=== PATIENT | female | born 1955 | race Hispanic/Latino ===

== ENCOUNTER 2016-10-03 20:48 | Observation (INO) | payer BC ==
[~2016-10-03] VITALS: Ht 160 cm; Wt 114.2 kg
[~2016-10-03 20:48] MED LIST: ANTIBIOTIC UNKNOWN; ANTIHYPERTENSIVE PO; ASPIRIN81 M2 PO; ATENOLOL25 MG PO; ATORVASTATIN CA80 MG PO; Cipro PO; GINKGO BILOBA120 M1 PO; KEFLEX500 MG PO; LORAZEPAM0.5 MG PO; MAGNESIUM400 M1 PO; OMEPRAZOLE40 M1 PO; POTASSIUM GLUCO90 MG PO; POTASSIUM GLUCO99 M1 PO; PYRIDIUM200 MG PO; TORADOL10 MG PO; TYLENOL WITH C1 EACH PO; XANAX0.5 MG PO
[2016-10-03 21:10] LABS: HEMATOCRIT 43.4 % (36.0-46.0); MCH 29.7 PG (29.0-34.0); MCHC 32.5 G/DL (30.0-36.0); MCV 91.4 FL (83-99); MEAN PLAT.VOLUME 9.3 uM^3 (9.5-12.4); PLATELET COUNT 255 K/uL (156-360); RBC DIS.WIDTH-CV 12.8 % (11.8-14.6); RBC DIS.WIDTH-SD 42.5 % (39-53); RED BLOOD COUNT 4.75 M/uL (3.80-5.20); WHITE BLOOD COUNT 9.9 K/uL (4.1-10.2)
[2016-10-03 21:32] LABS: CHLORIDE 106 mEq/L (99-109); POTASSIUM 4.2 mEq/L (3.7-5.4); SODIUM 139 mEq/L (136-147)
[2016-10-03 21:44] LABS: GFR ESTIMATE (CALCULATED) > 59 mL/min/; TROP-I INTERPRETATION NEGATIVE; TROPONIN-I < 0.01 ng/mL (0.0-0.30); UREA NITROGEN (BUN) 11 mg/dL (9-23)
[2016-10-03 21:56] LABS: GLUCOSE 101 mg/dL (70-99)
[2016-10-03 22:14] LABS: ADD MIUA? YES; BILIRUBIN NEGATIVE; BLOOD MODERATE; COLOR STRAW ((YELLOW)); GLUCOSE (STRIP) NEGATIVE; KETONES NEGATIVE; LEUKOCYTES NEGATIVE; NITRITE NEGATIVE; PROTEIN (STRIP) NEGATIVE; UROBILINOGEN 0.2 MG/DL (0.2-1.0)
[2016-10-03 22:15] LABS: D-DIMER ELISA 0.82 mg/L FEU (< 0.57)
[2016-10-03 22:21] LABS: BACTERIA NONE SEEN /HPF; EPITHELIAL CELLS RARE /HPF; MUCUS TRACE /LPF; RED BLOOD CELLS 0-5 /HPF (0-5); UCUL ADDED? NO; WHITE BLOOD CELLS 0-5 /HPF (0-5)
[2016-10-03] MEDS ORDERED: LOSARTAN POTASS50 MG PO (23:24)
[2016-10-03] MEDS ORDERED: ESOMEPRAZOLE MA40 MG PO (23:24)
[2016-10-04 01:39] LABS: HDL CHOLESTEROL 71 MG/DL (Desirable>=50); LDL CHOLESTEROL 125 mg/dL (Desirable<100); NON-HDL CHOLESTEROL 153 mg/dL (Desirable<160); TOTAL CHOLESTEROL 224 mg/dL (Desirable<200); TRIGLYCERIDES 142 MG/DL (Normal: <150)
[2016-10-04 01:48] VITALS: BP 107/58
[2016-10-04 02:32] LABS: TROP-I INTERPRETATION NEGATIVE; TROPONIN-I < 0.01 ng/mL (0.0-0.30)
[2016-10-04 07:55] VITALS: BP 118/59; BP 118/70
[2016-10-04 08:49] LABS: TROP-I INTERPRETATION NEGATIVE; TROPONIN-I < 0.01 ng/mL (0.0-0.30)
[2016-10-04 12:26] VITALS: BP 122/68
[2016-10-04 15:11] VITALS: BP 97/56
[2016-10-04] MEDS ORDERED: ASPIRIN81 M2 PO (15:50)
[2016-10-04] MEDS ORDERED: DOCUSATE SODIU100 MG PO (15:51)
[2016-10-04] MEDS ORDERED: PRAVASTATIN SOD40 MG PO (15:54)
== END 2016-10-04 18:07 | disposition home or self-care (01) ==
LOC: EME → EDBD 20:48 → EDOF 23:59 → 5WEST 23:59 → EDOF 23:59 → 5WEST 10-04 01:30
PROVIDERS: Emergency Medicine; Physician Assistant Medical
DX: R07.89 Other chest pain (principal); R42 Dizziness and giddiness; K59.00 Constipation, unspecified; I10 Essential (primary) hypertension; J45.909 Unspecified asthma, uncomplicated; G89.29 Other chronic pain; R10.9 Unspecified abdominal pain; M54.9 Dorsalgia, unspecified; F41.1 Generalized anxiety disorder; F32.9 Major depressive disorder, single episode, unspecified; E66.9 Obesity, unspecified; Z68.41 Body mass index [BMI] 40.0-44.9, adult
CPT/HCPCS: 71020; 74000; 80048; 80061; 81003; 84484; 85027; 85379; 93005; 99281; 99285; G0378; J1650

== ENCOUNTER 2016-11-25 04:18 | Observation (INO) | payer BC ==
[~2016-11-25] VITALS: Ht 160 cm; Wt 114.4 kg
[~2016-11-25 04:18] MED LIST changes: +DOCUSATE SODIU100 MG PO; +ESOMEPRAZOLE MA40 MG PO; +LOSARTAN POTASS50 MG PO; +PRAVASTATIN SOD40 MG PO
[2016-11-25 05:12] LABS: CHLORIDE 106 mEq/L (99-109)
[2016-11-25 05:13] LABS: POTASSIUM 4.2 mEq/L (3.7-5.4); SODIUM 142 mEq/L (136-147)
[2016-11-25 05:14] LABS: GLUCOSE 112 mg/dL (70-99)
[2016-11-25 05:16] LABS: ANION GAP 10 MEQ/L (2-14)
[2016-11-25 05:17] LABS: HEMATOCRIT 43.8 % (36.0-46.0); MCH 29.5 PG (29.0-34.0); MCHC 32.4 G/DL (30.0-36.0); MCV 91.1 FL (83-99); MEAN PLAT.VOLUME 9.7 uM^3 (9.5-12.4); PLATELET COUNT 253 K/uL (156-360); RBC DIS.WIDTH-SD 43.5 % (39-53); RED BLOOD COUNT 4.81 M/uL (3.80-5.20); WHITE BLOOD COUNT 7.2 K/uL (4.1-10.2)
[2016-11-25 05:18] LABS: GFR ESTIMATE (CALCULATED) > 59 mL/min/
[2016-11-25 05:19] LABS: UREA NITROGEN (BUN) 14 mg/dL (9-23)
[2016-11-25 05:26] LABS: TROP-I INTERPRETATION NEGATIVE; TROPONIN-I < 0.01 ng/mL (0.0-0.30)
[2016-11-25 06:35] LABS: ADD MIUA? YES; BILIRUBIN NEGATIVE; BLOOD SMALL; COLOR COLORLESS ((YELLOW)); GLUCOSE (STRIP) NEGATIVE; KETONES NEGATIVE; LEUKOCYTES NEGATIVE; NITRITE NEGATIVE; PROTEIN (STRIP) NEGATIVE; SPECIFIC GRAVITY 1.005 (1.000-1.030); UROBILINOGEN 0.2 MG/DL (0.2-1.0)
[2016-11-25 06:37] LABS: BACTERIA RARE /HPF; EPITHELIAL CELLS RARE /HPF; MUCUS NONE SEEN /LPF; RED BLOOD CELLS 0-5 /HPF (0-5); WHITE BLOOD CELLS 0-5 /HPF (0-5)
[2016-11-25 07:40] VITALS: BP 99/56
[2016-11-25 08:03] LABS: ALKALINE PHOSPHATASE 124 IU/L (3-129); DIRECT BILIRUBIN 0.2 mg/dL (0.0-0.3); SAMPLE HEMOLYSIS CHECK 0; SAMPLE ICTERIC CHECK 0; SAMPLE LIPEMIA CHECK 0; TOTAL BILIRUBIN 0.8 MG/DL (0.0-1.0)
[2016-11-25 11:55] VITALS: BP 112/56
[2016-11-25] MEDS ORDERED: PROPRANOLOL HCL10 MG PO (11:59)
[2016-11-25 13:19] LABS: TROP-I INTERPRETATION NEGATIVE; TROPONIN-I < 0.01 ng/mL (0.0-0.30)
[2016-11-25 15:00] VITALS: BP 106/51
[2016-11-25 17:14] LABS: TROP-I INTERPRETATION NEGATIVE; TROPONIN-I < 0.01 ng/mL (0.0-0.30)
== END 2016-11-25 18:40 | disposition home or self-care (01) ==
LOC: EME 04:18 → EDOF 06:16 → 5WEST 07:24
PROVIDERS: Emergency Medicine; Student in an Organized Health Care Education/Training Program
DX: R07.9 Chest pain, unspecified (principal); E66.9 Obesity, unspecified; E78.5 Hyperlipidemia, unspecified; I10 Essential (primary) hypertension; Z88.0 Allergy status to penicillin; Z91.09 Other allergy status, other than to drugs and biological substances; G89.29 Other chronic pain; R10.9 Unspecified abdominal pain; J45.909 Unspecified asthma, uncomplicated; F41.9 Anxiety disorder, unspecified; F32.9 Major depressive disorder, single episode, unspecified; R06.02 Shortness of breath; R10.11 Right upper quadrant pain; R51 Headache; R09.81 Nasal congestion; Z82.49 Family history of ischemic heart disease and other diseases of the circulatory system; Z82.3 Family history of stroke
CPT/HCPCS: 71020; 76705; 80048; 80076; 81003; 84484; 85027; 93005; 99281; 99285; G0378; J1650

== ENCOUNTER 2017-04-19 23:47 | Observation (INO) | payer BC ==
[~2017-04-19] VITALS: Ht 160 cm; Wt 115.5 kg
[~2017-04-19 23:47] MED LIST changes: +PROPRANOLOL HCL10 MG PO
[2017-04-20 00:51] LABS: HEMATOCRIT 40.6 % (36.0-46.0); MCHC 32.8 G/DL (30.0-36.0); MCV 91.6 FL (83-99); MEAN PLAT.VOLUME 9.6 uM^3 (9.5-12.4); PLATELET COUNT 230 K/uL (156-360); RBC DIS.WIDTH-CV 13.1 % (11.8-14.6); RBC DIS.WIDTH-SD 44.3 % (39-53); RED BLOOD COUNT 4.43 M/uL (3.80-5.20); WHITE BLOOD COUNT 7.8 K/uL (4.1-10.2)
[2017-04-20 01:01] LABS: CHLORIDE 107 mEq/L (99-109); POTASSIUM 4.1 mEq/L (3.7-5.4); SODIUM 142 mEq/L (136-147)
[2017-04-20 01:03] LABS: GLUCOSE 113 mg/dL (70-99)
[2017-04-20 01:04] LABS: ANION GAP 10 MEQ/L (2-14)
[2017-04-20 01:07] LABS: GFR ESTIMATE (CALCULATED) > 59 mL/min/
[2017-04-20 01:08] LABS: UREA NITROGEN (BUN) 13 mg/dL (9-23)
[2017-04-20 01:31] LABS: TROP-I INTERPRETATION NEGATIVE; TROPONIN-I < 0.01 ng/mL (0.0-0.30)
[2017-04-20 06:06] VITALS: BP 135/59
[2017-04-20 07:07] LABS: TROP-I INTERPRETATION NEGATIVE; TROPONIN-I < 0.01 ng/mL (0.0-0.30)
[2017-04-20 07:30] VITALS: BP 129/61
[2017-04-20] MEDS ORDERED: CRESTOR20 MG PO (08:44)
[2017-04-20] MEDS ORDERED: PROVENTIL,2.5 MG/3 M IH (08:45)
[2017-04-20] MEDS ORDERED: PULMICORT0.5 MG/21 IH (08:45)
[2017-04-20] MEDS ORDERED: IBUPROFEN600 MG PO (08:46)
[2017-04-20] MEDS ORDERED: VITAMIN D (08:47)
[2017-04-20] MEDS ORDERED: GINKGO BILOBA (08:47)
[2017-04-20] MEDS ORDERED: ASPIRIN81 M2 PO (08:56)
[2017-04-20 11:36] VITALS: BP 123/56
[2017-04-20] MEDS ORDERED: INDERAL10 MG PO (13:03)
[2017-04-20 13:17] LABS: TROP-I INTERPRETATION NEGATIVE; TROPONIN-I < 0.01 ng/mL (0.0-0.30)
== END 2017-04-20 14:42 | disposition home or self-care (01) ==
LOC: EME 23:47 → EDOF 04-20 03:41 → ENRESERV 04-20 03:44 → 5WEST 04-20 06:02
PROVIDERS: Emergency Medicine; Physician Assistant
DX: R07.9 Chest pain, unspecified (principal); G89.29 Other chronic pain; R10.9 Unspecified abdominal pain; I10 Essential (primary) hypertension; J45.909 Unspecified asthma, uncomplicated; F41.9 Anxiety disorder, unspecified; F32.9 Major depressive disorder, single episode, unspecified; R11.0 Nausea; R42 Dizziness and giddiness; R50.9 Fever, unspecified; R51 Headache; R00.2 Palpitations; T44.7X6A Underdosing of beta-adrenoreceptor antagonists, initial encounter; Z91.128 Patient's intentional underdosing of medication regimen for other reason; Z79.82 Long term (current) use of aspirin; E66.9 Obesity, unspecified; Z68.42 Body mass index [BMI] 45.0-49.9, adult; Z82.3 Family history of stroke; Z88.0 Allergy status to penicillin; Z91.041 Radiographic dye allergy status
CPT/HCPCS: 71020; 80048; 83605; 83880; 84484; 85027; 87040; 93005; 99281; 99285; G0378; J1644